=== PATIENT | female | born 1990 | race Caucasian/White ===

== ENCOUNTER 2021-05-19 11:33 | Emergency (ER) | payer BC, SELFPAY ==
--- NOTE | 2021-05-19 11:36 | ED.URI ---
HPI - URI/Sore Throat General Chief Complaint: Upper Respiratory Infection Stated Complaint: congestion/ear pain Time Seen by Provider: 05/19/21 11:36 Source: patient and RN notes reviewed History of Present Illness HPI Narrative: Patient is a 31-year-old female who presents the urgent care with complaints of left ear pain, runny nose and congestion. Patient states that she had Covid in August and her symptoms are very mild. Patient has not been vaccinated and denies of any known exposure. Patient is also a elementary school reading teacher and was tested on which was negative. Patient also tested herself at home this morning and was negative for Covid. Patient denies of any sore throat, nausea, vomiting, fever. No other acute complaints. States that she has been taking Zyrtec, Benadryl and Flonase for symptom relief. No other acute complaints. No acute distress noted. Patient plan of care. Some parts of this dictation were generated by voice recognition software and may contain typographical and/or grammatical inaccuracies. Related Data Home Medications Medication Instructions Recorded Confirmed Zyrtec 10 mg PO PRN PRN 05/19/21 05/19/21 Allergies Allergy/AdvReac Type Severity Reaction Status Date / Time No Known Allergies Allergy Unknown Verified 05/19/21 11:47 Review of Systems Review of Systems: CONSTITUTIONAL: Denies fever, chills, or sweats. EYES: Denies visual changes, redness, or discharge. ENT reports of rhinorrhea, postnasal drainage and left otalgia CARDIOVASCULAR: Denies chest pain, palpitations, or edema. RESPIRATORY: Denies cough or dyspnea. GASTROINTESTINAL: Denies abdominal pain, nausea, vomiting, or diarrhea. GENITOURINARY: Denies dysuria or hematuria. SKIN: Denies rash or itching. MUSCULOSKELETAL: Denies back pain, joint pain, or myalgia. NEUROLOGIC: Denies headache, numbness, or weakness. PSYCHIATRIC: Denies anxiety or depression. All other systems reviewed are negative, except as documented in HPI. PMFSH Comments At the time of my signature, I reviewed and agree with the nursing past medical, surgical, social, and family history. There is no relevant family history pertinent to the patient complaint. Exam Narrative: GENERAL: This is a well-nourished, well-developed patient, in no apparent distress. HEAD: normocephalic, atraumatic. EYES: PERRL. Sclera clear/white. Vision is grossly intact. EARS: External ears normal, auditory canals clear and without drainage, TMs normal without perforation. Hearing grossly intact. NOSE: External nose normal with no obvious nasal discharge, nares without redness, clear rhinorrhea. THROAT: Mucous membranes moist, posterior pharynx clear. Mild postnasal drainage NECK: Neck supple, non-tender without lymphadenopathy, masses or thyromegaly. CARDIOVASCULAR: Regular rate and rhythm without murmurs, gallops, or rubs. RESPIRATORY: Clear to auscultation. Breath sounds equal bilaterally. No wheezes, rales, or rhonchi. SKIN: warm, intact with no suspicious lesions or rash, good texture and turgor. NEURO: awake, alert, and oriented to person, place and time. There were no obvious focal neurologic abnormalities. EXTREMITIES: No clubbing, cyanosis, or edema. Course Vital Signs Vital signs: Vital Signs Temperature 98.4 F 05/19/21 11:45 Pulse Rate 95 05/19/21 11:45 Respiratory Rate 16 05/19/21 11:45 Blood Pressure 133/81 05/19/21 11:45 Pulse Oximetry 100 05/19/21 11:45 Temperature 98.4 F 05/19/21 11:47 Pulse Rate 95 05/19/21 11:47 Respiratory Rate 16 05/19/21 11:47 Blood Pressure 133/81 05/19/21 11:47 Pulse Oximetry 100 05/19/21 11:47 Reviewed MDM - URI/Sore Throat MDM Narrative Medical decision making narrative: Advised the patient to continue her at home remedies for common cold/allergy symptoms such as Zyrtec/Benadryl/Flonase. Use a humidifier at night. Increase fluid intake. If you develop any increase in symptoms associated with fever
[2021-05-19 11:45] VITALS: BP 133/81; PULSE 95; RESP 16; TEMP 36.9; O2SAT 100
[2021-05-19 11:47] VITALS: BP 133/81; PULSE 95; RESP 16; TEMP 36.9; O2SAT 100
== END 2021-05-19 12:00 | disposition home or self-care (01) ==
PROVIDERS: Emergency Provider Nurse Practitioner Family
DX: J00 Acute nasopharyngitis [common cold] (principal)
CPT/HCPCS: 99202; G0463